=== PATIENT | male | born 1965 | race Caucasian/White ===

== ENCOUNTER → 2020-08-15 | Outpatient (CLI) | payer OTHER | END | disposition home or self-care (01) | LOC: LABWHC1 13:14 | PROVIDERS: ATTEND Physician Assistant | DX: Z20.822 Contact with and (suspected) exposure to COVID-19 (principal) | CPT/HCPCS: U0003; C9803; U0005 ==

== ENCOUNTER → 2024-11-20 | Outpatient (CLI) | payer BC ==
--- NOTE | 2024-11-28 22:54 | MR ---
EXAMINATION TYPE: MR shoulder RT wo con DATE OF EXAM: 11/20/2024 6:44 PM COMPARISON: Outside right shoulder x-ray November 12, 2024 CLINICAL INDICATION: Male, 59 years old with history of S42.144A NONDISP FX OF GLENOID CAV OF SCAPULA , RIG, Right shoulder pain since 4-5-25 due to fall on shoulder, glenoid fx, history of rotator cuff repair 14 years ago IV Contrast: cc (None if empty) TECHNIQUE: Multiplanar, multisequence imaging of the right shoulder is performed without contrast. FINDINGS: Rotator Cuff: Full thickness retracted tear of the infraspinatus and supraspinatus tendons. Increased signal in the subscapularis tendon with surrounding fluid. There is mild atrophy of the infraspinatu s muscle. There is [id number] atrophy of the teres minor and subscapularis tendons. There is kelley spected tubular signal from prior rotator cuff surgical repair in the humeral head. Acromioclavicular Joint: Moderate to severe narrowing and moderate superior capsular hypertrophy. Mil [id number] spurring. Glenohumeral Joint: High positioned humeral head suggesting underlying instability. Significant narro wing is present. Corresponding to x-ray there is slightly displaced fracture through the anterior-inf erior aspect of the osseous glenoid. Labrum: Abnormal signal consistent with tear through the superior labrum. Biceps Tendon: Anteromedial dislocation is present. Bone marrow signal: Loss of spherical shape to the humeral head. Heterogeneous increased T2 signal th roughout the lateral aspect. Heterogeneous increased T2 signal through the inferior portion of the os seous glenoid. Other: No additional significant abnormality is appreciated. IMPRESSION: 1. Full-thickness retracted tears of the supraspinatus and infraspinatus tendons. Underlying instabil ity with superior positioning of the humeral head. 2. Acute displaced fracture of the inferior aspect of the osseous glenoid with surrounding osseous c ontusion injury. 3. Significant tendinosis/tearing of the subscapularis tendon. 4. Anteromedial dislocation of the long head of biceps tendon. [facility], , 11/28/2024 10:52 PM
== END | disposition home or self-care (01) ==
LOC: RADMRIMAIN 18:02
PROVIDERS: ATTEND Orthopaedic Surgery
DX: S42.141A Displaced fracture of glenoid cavity of scapula, right shoulder, initial encounter for closed fracture (principal); S43.004A Unspecified dislocation of right shoulder joint, initial encounter; S46.011A Strain of muscle(s) and tendon(s) of the rotator cuff of right shoulder, initial encounter